=== PATIENT | female | born 1950 | race Two or more races ===

== ENCOUNTER 2017-12-04 11:34 | Inpatient (IN) | payer OTHER ==
[~2017-12-04] VITALS: Ht 157.5 cm; Wt 72.6 kg
[~2017-12-04 11:34] MED LIST: ALTACE2.5 MG; EVISTA60 MG
[2017-12-04] MEDS ORDERED: SINGULAIR10 MG (12:03)
[2017-12-08] MEDS ORDERED: ACETAMINOPHEN-1 EAC2 PO (09:37)
[2017-12-08] MEDS ORDERED: DUI500 PO (09:37)
[2017-12-08] MEDS ORDERED: ELIQUIS2.5 MG PO (09:37)
== END 2017-12-08 13:19 | disposition home or self-care (01) | DRG 481 ==
LOC: ER 11:34 → SEC-K 15:17 → SURH 15:17
PROVIDERS: Orthopaedic Surgery
PROC: 0QR Lower Bones, Replacement (ICD-10-PCS; 2017-12-04)
PROC: 0QS636Z Reposition Right Upper Femur with Intramedullary Internal Fixation Device, Percutaneous Approach (ICD-10-PCS; principal; 2017-12-04 16:00)
DX: S72.141A Displaced intertrochanteric fracture of right femur, initial encounter for closed fracture (principal); D62 Acute posthemorrhagic anemia; W18.39XA Other fall on same level, initial encounter; Y93.89 Activity, other specified; Y92.89 Other specified places as the place of occurrence of the external cause; Y99.8 Other external cause status; I10 Essential (primary) hypertension; R55 Syncope and collapse; M81.0 Age-related osteoporosis without current pathological fracture; J30.89 Other allergic rhinitis